=== PATIENT | male | born 1985 | race Caucasian/White ===

== ENCOUNTER 2023-08-31 12:53 | Emergency (ER) | payer MEDICAID ==
[~2023-08-31] VITALS: Ht 172.7 cm; Wt 113.0 kg
[2023-08-31 13:26] VITALS: BP 124/79; PULSE 78; RESP 16; TEMP 97.9; O2SAT 99
== END 2023-08-31 14:45 | disposition home or self-care (01) ==
LOC: ER 12:53
DX: G56.22 Lesion of ulnar nerve, left upper limb (principal); F12.10 Cannabis abuse, uncomplicated
CPT/HCPCS: 99281